=== PATIENT | male | born 1950 | race Hispanic/Latino ===

== ENCOUNTER 2019-01-26 15:37 | Inpatient (IN) | payer OTHER ==
[~2019-01-26] VITALS: Ht 160 cm; Wt 59.0 kg
[2019-01-26] MEDS: SODIUM CHLORIDE 0.9% 1000ML 1,000 ML IV SCH (03:00)
[2019-01-26 17:11] LABS: BASOPHILS % (AUTO) 0.5 % (0.0-5.0); EOSINOPHILS % (AUTO) 1.2 % (0.0-8.0); HEMATOCRIT 39.4 % (42-54); LYMPHOCYTES % (AUTO) 20.1 % (21.0-51.0); MEAN CORPUSCULAR HEMOGLOBIN 30.8 pg (27.0-33.0); MEAN CORPUSCULAR HGB CONC 34.3 g/dL (32.0-36.0); MEAN CORPUSCULAR VOLUME 89.9 fL (79-99); NEUTROPHILS % (AUTO) 72.2 % (40.0-77.0); PLATELET COUNT (AUTO) 262 K/uL (130-400); RED BLOOD CELL COUNT(AUTO) 4.39 MIL/uL (4.50-6.20); RED CELL DISTRIBUTION WIDTH 13.6 % (11.0-15.5); WHITE BLOOD COUNT (AUTO) 10.8 K/uL (4.8-10.8)
[2019-01-26 17:17] LABS: CREATININE 1.2 mg/dL (0.5-1.5); POTASSIUM 3.7 mmol/L (3.5-5.1)
[2019-01-26 17:22] LABS: ALBUMIN 3.5 g/dL (3.5-5.0); BILIRUBIN,TOTAL 0.4 mg/dL (0.2-1.0); CRP QUANTITATIVE 3.6 mg/L (0.00-9.0); TOTAL PROTEIN, SERUM 6.9 g/dL (6.0-8.3)
[2019-01-26 18:31] LABS: ERYTHROCYTE SEDIMENTATION RATE 26 MM/HR (0-20)
[2019-01-26] MEDS ORDERED: BISACODYL 10 MG SUPP.RECT RC PRN (19:30)
[2019-01-26] MEDS ORDERED: ONDANSETRON HCL 4 MG/2 ML VIAL IV PRN (19:30)
[2019-01-26] MEDS ORDERED: SODIUM CHLORIDE 0.9% 1000ML 1,000 ML IV ONE ×2 (20:50→21:29)
[2019-01-26] MEDS ORDERED: INSULIN HUMULIN R 100 UNIT/ML 3ML SQ SCH (21:00)
[2019-01-26] MEDS: FAMOTIDINE/PF 20 MG/2 ML VIAL IV SCH (21:00)
[2019-01-26] MEDS ORDERED: ONDANSETRON HCL 4 MG/2 ML VIAL ONE (21:28)
[2019-01-26] MEDS ORDERED: FAMOTIDINE/PF 20 MG/2 ML VIAL IV ONE (21:29)
[2019-01-26] MEDS ORDERED: MORPHINE SULFATE 2 MG/ML 1ML SYG ONE (21:37)
[2019-01-27] VITALS (31 sets, daily range): BP systolic 109–193; BP diastolic 53–113
[2019-01-27] MEDS ORDERED: MORPHINE SULFATE 2 MG/ML 1ML SYG ONE (02:33)
[2019-01-27] MEDS: SODIUM CHLORIDE 0.9% 1000ML 1,000 ML IV SCH ×3 (05:26→15:19)
[2019-01-27] MEDS: INSULIN HUMULIN R 100 UNIT/ML 3ML SQ SCH ×2 (06:00→12:00)
[2019-01-27] MEDS: HYDRALAZINE HCL 20 MG/ML VIAL IV PRN ×2 (08:09→14:42)
[2019-01-27] MEDS: FAMOTIDINE/PF 20 MG/2 ML VIAL IV SCH ×2 (09:31→20:55)
[2019-01-27] MEDS ORDERED: ASPI-555 PO (09:45)
[2019-01-27] MEDS ORDERED: METO25TA6 PO (09:45)
[2019-01-27] MEDS ORDERED: ATOR40TA69 PO (09:45)
[2019-01-27] MEDS ORDERED: CHOL100034 PO (09:45)
[2019-01-27] MEDS ORDERED: SODI650T PO (09:45)
[2019-01-27] MEDS ORDERED: ASCO500T8 PO (09:45)
[2019-01-27] MEDS ORDERED: FURO40TA5 PO (09:45)
[2019-01-27 11:43] LABS: INR 0.99 (0.85-1.15); PROTHROMBIN TIME 10.4 SEC (9.6-11.6)
[2019-01-27] MEDS ORDERED: DEXAMETHASONE SOD PHOSPHATE 10MG/ML 1ML VIAL ONE (12:42)
[2019-01-27] MEDS ORDERED: ONDANSETRON HCL 4 MG/2 ML VIAL ONE (12:42)
[2019-01-27] MEDS ORDERED: MIDAZOLAM HCL 1 MG/ML 2ML VIAL ONE (12:42)
[2019-01-27] MEDS ORDERED: LIDOCAINE PF 2% 5ML ABBOJECT ONE (12:42)
[2019-01-27] MEDS ORDERED: PROPOFOL 10 MG/ML 20ML VIAL IV ONE (12:43)
[2019-01-27] MEDS ORDERED: FENTANYL CITRATE PF 50 MCG/1 ML 2ML VIAL ONE (12:43)
[2019-01-27] MEDS ORDERED: LIDOCAINE HCL 1% 20 ML VIAL ONE (12:56)
[2019-01-27] MEDS ORDERED: LABETALOL 20 MG/4 ML DISP.SYRIN IV ONE (13:58)
[2019-01-27] MEDS ORDERED: METF-444 PO (15:27)
[2019-01-27] MEDS ORDERED: BUPR100T13 PO (15:27)
[2019-01-27] MEDS ORDERED: ZOLP5TAB8 PO (15:27)
[2019-01-27] MEDS ORDERED: OMEP20CA10 PO (15:27)
[2019-01-27] MEDS ORDERED: ONDA8TAB11 PO (15:27)
[2019-01-27] MEDS ORDERED: ATOR40TA71 PO (15:27)
[2019-01-27] MEDS ORDERED: TAMS-1 PO (15:27)
[2019-01-27] MEDS ORDERED: TICA90TA PO (15:27)
[2019-01-27] MEDS ORDERED: PRED5DRO25 OP (15:27)
[2019-01-27] MEDS ORDERED: ASPI-1197 PO (15:27)
[2019-01-27] MEDS ORDERED: MULT-1258 PO (15:27)
[2019-01-27] MEDS ORDERED: AMLO10TA7 PO (15:27)
[2019-01-27] MEDS: MORPHINE SULFATE 2 MG/ML 1ML SYG IV PRN (16:23)
[2019-01-27] MEDS ORDERED: LORAZEPAM 2 MG/ML 1 ML VIAL IVP SCH (17:30)
--- NOTE | 2019-01-27 20:45 | NUR ---
MEDS PT RE-POSITIONED COMFORTABLY IN BED. DUE MEDS ADMINISTERED, TOLERATED WELL. MAINTAINED ON IVF. KEPT NPO MD ORDERED. PT'S SPOUSE AT BEDSIDE IN ATTENDANCE TO NEEDS AT THIS TIME.
[2019-01-28] MEDS: SODIUM CHLORIDE 0.9% 1000ML 1,000 ML IV SCH ×3 (01:19→11:29)
--- NOTE | 2019-01-28 02:00 | NUR ---
ROUNDS PT RESTING WELL. NO DISTRESS NOTED. NO COMPLAINTS VERBALIZED. KEPT COMFORTABLE. WILL MONITOR PT.
[2019-01-28] MEDS: MORPHINE SULFATE 2 MG/ML 1ML SYG IV PRN ×2 (03:22→10:20)
--- NOTE | 2019-01-28 03:22 | NUR ---
PAIN PT IS RESTLESS IN BED. V/S MONITORED BY PCP AND HR AND BP ARE ELEVATED. MORPHINE 2MG IV GIVEN FOR PAINS. WILL RE-ASSESS PT.
--- NOTE | 2019-01-28 04:33 | NUR ---
BP RE-CHECKED BP AND IS STILL ELEVATED. PCP IN AND GAVE PT A BED BATH, TOLERATED ACTIVITY WELL. RE-POSITIONED COMFORTABLY IN BED. MEDICATED WITH HYDRALAZINE IV FOR HYPERTENSION. WILL RE-ASSESS PT.
[2019-01-28] MEDS: HYDRALAZINE HCL 20 MG/ML VIAL IV PRN ×3 (04:48→16:09)
[2019-01-28 05:03] VITALS: BP 175/89
[2019-01-28] MEDS: INSULIN HUMULIN R 100 UNIT/ML 3ML SQ SCH ×4 (05:46→18:00)
[2019-01-28 06:31] LABS: BASOPHILS % (AUTO) 0.5 % (0.0-5.0); EOSINOPHILS % (AUTO) 0.7 % (0.0-8.0); LYMPHOCYTES % (AUTO) 8.3 % (21.0-51.0); MEAN CORPUSCULAR HEMOGLOBIN 31.4 pg (27.0-33.0); MEAN CORPUSCULAR VOLUME 89.6 fL (79-99); MONOCYTES % (AUTO) 5.7 % (3.0-13.0); NEUTROPHILS % (AUTO) 84.8 % (40.0-77.0); PLATELET COUNT (AUTO) 240 K/uL (130-400); RED BLOOD CELL COUNT(AUTO) 4.12 MIL/uL (4.50-6.20); RED CELL DISTRIBUTION WIDTH 13.5 % (11.0-15.5); WHITE BLOOD COUNT (AUTO) 14.3 K/uL (4.8-10.8)
[2019-01-28 06:39] LABS: POTASSIUM 3.6 mmol/L (3.5-5.1)
[2019-01-28 08:00] VITALS: BP 160/70
[2019-01-28] MEDS: FAMOTIDINE/PF 20 MG/2 ML VIAL IV SCH (10:19)
[2019-01-28 12:00] VITALS: BP 108/64
[2019-01-28] MEDS ORDERED: LORAZEPAM 2 MG/ML 1 ML VIAL IVP PRN (14:45)
[2019-01-28] MEDS ORDERED: CLINDAMYCIN 600 MG/D5% WATER 50 ML IV SCH (14:45)
--- NOTE | 2019-01-28 15:03 | NUR ---
Placement Decline per Spouse. Spouse declining placement for pt. Pt cleared to be d/c from Dr. Barney's standpoint S/P day one of Excision of anal polyps. called [employer] on her cell phone #[phone] to clarify if she will be okay to care for pt at home. Pending response from spouse, Nursing will continue to follow up.
[2019-01-28 16:00] VITALS: BP 185/72
--- NOTE | 2019-01-28 16:14 | NUR ---
BP Update SPB of 185/72 at this time. Hydralazine 20mg PRN for SPB over 160 given. Nursing will continue to monitor and re-check BP.
--- NOTE | 2019-01-28 17:24 | NUR ---
INITIAL: Met w pt and spouse to discuss dcp. Pt w dementia and not reliable. Information obtained from spouse. Prior to admission pt was living w spouse. Pt is wc bound and transfers w assist. Per spouse pt is dependent w ADLs. Pt has at home a chair, hospital bed and receives 8hr/week provider services thru [place]. Spouse mentions that she wants to take pt home and not willing to consider SNF at this time. Will continue to follow and wait for Md recommendations. Addendum: 01/28/19 at 1726 by HAKAN AMADO CM Amended: Links added.
--- NOTE | 2019-01-28 19:03 | NUR ---
BP re-check 155/64, Education provided to monitor BP frequently, Follow BP regimen, Education on constipation also provided, Pt to get hydrated more often, eat more fruits and vegetables, Pt and spouse verbalized understanding of d/c instruction. All question and concerns answered.
== END 2019-01-28 18:40 | disposition home or self-care (01) | DRG 349 ==
LOC: EDH 15:37 → EDHIP 19:19 → 3DH 01-27 02:50
PROVIDERS: ADMIT Internal Medicine; ATTEND Internal Medicine
PROC: 0DBQ7ZZ Excision of Anus, Via Natural or Artificial Opening (ICD-10-PCS; principal; 2019-01-27 12:35)
DX: K62.0 Anal polyp (principal); K59.00 Constipation, unspecified; I10 Essential (primary) hypertension; E78.5 Hyperlipidemia, unspecified; E11.319 Type 2 diabetes mellitus with unspecified diabetic retinopathy without macular edema; H54.7 Unspecified visual loss; K64.4 Residual hemorrhoidal skin tags; Z94.7 Corneal transplant status; Z95.1 Presence of aortocoronary bypass graft
CPT/HCPCS: 36415; 80048; 80053; 82270; 82948; 83605; 85025; 85610; 85651; 85730; 86140; 86850; 86900; 86901; 87040; C1769; G0378; J0360; J1100; J2001; J2060; J2250; J2405; J2704; J3010; J3490; J7030

== ENCOUNTER 2020-12-04 17:18 | Inpatient (IN) | payer MEDICARE, OTHER ==
[~2020-12-04] VITALS: Ht 157.5 cm; Wt 56.7 kg
[~2020-12-04 17:18] MED LIST: AMLO-258 PO; ASPI-1197 PO; ATOR40TA71 PO; BUPR100T13 PO; METF-444 PO; MULT-1258 PO; OMEP20CA12 PO; ONDA-105 PO; PRED5DRO25 OP; TAMS-1 PO; TICA90TA PO; ZOLP5TAB8 PO
[2020-12-04 18:05] LABS: BASOPHILS % (AUTO) 0.2 % (0.0-5.0); EOSINOPHILS % (AUTO) 0.3 % (0.0-8.0); HEMATOCRIT 38.7 % (42-54); MEAN CORPUSCULAR HEMOGLOBIN 31.2 pg (27.0-33.0); MEAN CORPUSCULAR HGB CONC 35.7 g/dL (32.0-36.0); MEAN CORPUSCULAR VOLUME 87.6 fL (79-99); MONOCYTES % (AUTO) 4.7 % (3.0-13.0); NEUTROPHILS % (AUTO) 84.5 % (40.0-77.0); PLATELET COUNT (AUTO) 214 K/uL (130-400); RED BLOOD CELL COUNT(AUTO) 4.42 MIL/uL (4.50-6.20); RED CELL DISTRIBUTION WIDTH 11.5 % (11.0-15.5)
[2020-12-04 18:21] LABS: INR 1.01 (0.85-1.15)
[2020-12-04 18:22] LABS: PARTIAL THROMBOPLASTIN TIME 22.1 SEC (26.3-35.5)
[2020-12-04 18:31] LABS: B-TYPE NATRIURETIC PEPTIDE 309 pg/mL (0-100)
[2020-12-04 18:41] LABS: CREATININE 1.7 mg/dL (0.5-1.5); POTASSIUM 3.5 mmol/L (3.5-5.1)
[2020-12-04 18:43] LABS: ALBUMIN 3.5 g/dL (3.5-5.0); BILIRUBIN,TOTAL 0.6 mg/dL (0.2-1.0); TOTAL PROTEIN, SERUM 6.7 g/dL (6.0-8.3)
[2020-12-04] MEDS ORDERED: ACETAMINOPHEN 325 MG TAB PO PRN ×2 (21:00)
[2020-12-04] MEDS: INSULIN GLARGINE 100 UNITS/ML 10 ML VIAL SQ SCH (21:00)
[2020-12-04] MEDS: 0.9%NACL 1000ML 1,000 ML IV SCH (21:00)
[2020-12-04] MEDS: METOPROLOL TARTRATE 25 MG TAB PO SCH (21:00)
[2020-12-04] MEDS ORDERED: MORPHINE 2 MG SYG IV PRN (21:00)
[2020-12-04] MEDS ORDERED: LABETALOL 20MG SYG IV PRN (21:00)
[2020-12-04] MEDS: TICAGRELOR 90 MG TABLET PO SCH (21:00)
[2020-12-04] MEDS: LISINOPRIL 10 MG TABLET PO SCH (21:00)
[2020-12-04] MEDS ORDERED: ONDANSETRON 4MG INJ IV PRN (21:00)
[2020-12-04] MEDS: NITROGLYCERIN 1GM OINT 1 INCH/1GM TD SCH (21:00)
[2020-12-04] MEDS: FAMOTIDINE 20MG VIAL IV SCH (21:00)
[2020-12-04] MEDS: LACTATED RINGERS 1000ML 1,000 ML IV SCH (21:15)
[2020-12-04 21:41] LABS: HEMOGLOBIN A1C 6.5 % (4.0-6.0)
[2020-12-04] MEDS ORDERED: ZOLPIDEM TARTRATE 5 MG TAB PO PRN (21:45)
[2020-12-04 22:17] LABS: CREATINE KINASE, TOTAL 48 U/L (21-232); MYOGLOBIN 67 ng/mL (10-92); TROPONIN I < 0.04 ng/mL (0.00-0.06)
[2020-12-04 23:05] LABS: MAGNESIUM 1.7 mg/dL (1.80-2.40); PHOSPHORUS 3.2 mg/dL (2.5-4.9)
[2020-12-04 23:54] LABS: APPEARANCE,URINE Clear (CLEAR); BILIRUBIN,URINE Negative (NEGATIVE); COLOR,URINE Yellow (YELLOW); GLUCOSE, URINE (UA) >=1000 mg/dL (NEGATIVE); KETONES,URINE Trace mg/dL (NEGATIVE); LEUKOCYTE ESTERASE ,URINE Negative (NEGATIVE); NITRATE,URINE Negative (NEGATIVE); OCCULT BLOOD,URINE Trace (NEGATIVE); PH,URINE 5.5 (5.0-8.0); PROTEIN,URINE >=1000 mg/dL (NEGATIVE)
[2020-12-05] VITALS (35 sets, daily range): BP systolic 136–199; BP diastolic 65–104
[2020-12-05] MEDS ORDERED: NITROGLYCERIN 1GM OINT 1 INCH/1GM TD ONE (00:05)
[2020-12-05] MEDS ORDERED: ONDANSETRON 4MG INJ ONE (00:05)
[2020-12-05 00:06] LABS: BACTERIA,URINE Rare /HPF (None Seen); SQUAMOUS EPITHELIAL CELL,UR 0-2 /HPF (0-2)
[2020-12-05] MEDS ORDERED: LACTATED RINGERS 1000ML 1,000 ML IV ONE (02:52)
[2020-12-05] MEDS: ZOSYN 3.375GM+NS 50ML 50 ML IV SCH ×3 (03:54→21:37)
[2020-12-05] MEDS ORDERED: MAGNESIUM 2GM PREMIX 50ML 50 ML IV PRN (04:30)
[2020-12-05] MEDS ORDERED: POTASSIUM CHLORIDE 20MEQ/100ML 100 ML IV PRN (04:30)
[2020-12-05] MEDS ORDERED: LIDOCAINE HCL-MPF 1% 2ML VIAL IV PRN (04:30)
[2020-12-05] MEDS ORDERED: NICARDIPINE 25MG INJ 25 MG in 0.9% NACL 250ML 240 ML IV SCH (04:30)
[2020-12-05] MEDS ORDERED: LABETALOL 20MG SYG IV PRN (04:30)
[2020-12-05] MEDS ORDERED: NICARDIPINE 25MG INJ IV ONE (04:50)
[2020-12-05] MEDS ORDERED: 0.9% NACL 250ML 250 ML IV ONE (04:51)
[2020-12-05] MEDS: NITROGLYCERIN 1GM OINT 1 INCH/1GM TD SCH ×3 (06:22→21:38)
[2020-12-05 06:24] LABS: CREATINE KINASE, TOTAL 33 U/L (21-232); TROPONIN I < 0.04 ng/mL (0.00-0.06)
[2020-12-05 06:49] LABS: MYOGLOBIN 57 ng/mL (10-92)
[2020-12-05] MEDS: 0.9%NACL 1000ML 1,000 ML IV SCH (07:00)
[2020-12-05] MEDS: LACTATED RINGERS 1000ML 1,000 ML IV SCH ×2 (07:15→07:32)
[2020-12-05] MEDS: ASPIRIN 81MG CHEW TAB PO SCH (09:22)
[2020-12-05] MEDS: METOPROLOL TARTRATE 25 MG TAB PO SCH ×2 (09:22→21:37)
[2020-12-05] MEDS: TICAGRELOR 90 MG TABLET PO SCH ×2 (09:22→21:37)
[2020-12-05] MEDS: LISINOPRIL 10 MG TABLET PO SCH (09:22)
[2020-12-05] MEDS: ENOXAPARIN SODIUM 40 MG/0.4 ML SYRINGE SQ SCH (09:22)
[2020-12-05] MEDS: SERTRALINE HCL 50 MG TABLET PO SCH (09:22)
[2020-12-05 12:55] LABS: CREATINE KINASE, TOTAL 39 U/L (21-232); MYOGLOBIN 82 ng/mL (10-92); TROPONIN I < 0.04 ng/mL (0.00-0.06)
[2020-12-05 14:17] LABS: AMPHET/METH SCREEN,URINE NEGATIVE (NEGATIVE); BARBITURATE SCREEN, URINE NEGATIVE (NEGATIVE); BENZODIAZEPINES SCREEN,URINE NEGATIVE (NEGATIVE); CANNABINOID SCREEN,URINE NEGATIVE (NEGATIVE); COCAINE SCREEN,URINE NEGATIVE (NEGATIVE); OPIATE SCREEN,URINE NEGATIVE (NEGATIVE); PHENCYCLIDINE SCREEN,URINE NEGATIVE (NEGATIVE)
[2020-12-05] MEDS ORDERED: DIATR MEGLU/DIATRIZOATE SODIUM 30 ML BOTTLE ONE (15:03)
[2020-12-05 15:33] LABS: CREATININE 1.5 mg/dL (0.5-1.5); POTASSIUM 3.6 mmol/L (3.5-5.1)
[2020-12-05] MEDS ORDERED: IOHEXOL-350 75 ML VIAL IV ONE (16:52)
[2020-12-05] MEDS ORDERED: NICARDIPINE 25MG INJ 50 MG in 0.9% NACL 250ML 230 ML IV SCH (21:00)
[2020-12-05] MEDS: INSULIN GLARGINE 100 UNITS/ML 10 ML VIAL SQ SCH (21:00)
[2020-12-05] MEDS: FAMOTIDINE 20MG VIAL IV SCH (21:37)
[2020-12-05] MEDS: ATORVASTATIN 40 MG TABLET PO SCH (21:37)
[2020-12-06] VITALS (81 sets, daily range): BP systolic 110–194; BP diastolic 52–104
[2020-12-06] MEDS: ZOSYN 3.375GM+NS 50ML 50 ML IV SCH ×3 (05:22→22:22)
[2020-12-06] MEDS: NITROGLYCERIN 1GM OINT 1 INCH/1GM TD SCH ×2 (05:23→12:03)
[2020-12-06 06:40] LABS: BASOPHILS % (AUTO) 0.2 % (0.0-5.0); EOSINOPHILS % (AUTO) 0.2 % (0.0-8.0); HEMATOCRIT 37.5 % (42-54); LYMPHOCYTES % (AUTO) 6.1 % (21.0-51.0); MEAN CORPUSCULAR HEMOGLOBIN 31.9 pg (27.0-33.0); MEAN CORPUSCULAR HGB CONC 35.7 g/dL (32.0-36.0); MEAN CORPUSCULAR VOLUME 89.3 fL (79-99); MONOCYTES % (AUTO) 7.1 % (3.0-13.0); PLATELET COUNT (AUTO) 255 K/uL (130-400); RED CELL DISTRIBUTION WIDTH 11.8 % (11.0-15.5); WHITE BLOOD COUNT (AUTO) 17.3 K/uL (4.8-10.8)
[2020-12-06 06:48] LABS: CREATININE 1.5 mg/dL (0.5-1.5); POTASSIUM 3.5 mmol/L (3.5-5.1)
[2020-12-06] MEDS: ASPIRIN 81MG CHEW TAB PO SCH (09:58)
[2020-12-06] MEDS: SERTRALINE HCL 50 MG TABLET PO SCH (09:58)
[2020-12-06] MEDS: LISINOPRIL 10 MG TABLET PO SCH (09:58)
[2020-12-06] MEDS: METOPROLOL TARTRATE 25 MG TAB PO SCH ×2 (09:58→22:22)
[2020-12-06] MEDS: TICAGRELOR 90 MG TABLET PO SCH ×2 (09:59→22:22)
[2020-12-06] MEDS: ENOXAPARIN SODIUM 40 MG/0.4 ML SYRINGE SQ SCH (09:59)
[2020-12-06] MEDS ORDERED: LISINOPRIL 10 MG TABLET PO SCH ×2 (11:21→11:45)
[2020-12-06] MEDS ORDERED: LACTULOSE 20 GM/30 ML UDCUP PO PRN (15:45)
[2020-12-06] MEDS: ATORVASTATIN 40 MG TABLET PO SCH (22:22)
[2020-12-06] MEDS: FAMOTIDINE 20MG VIAL IV SCH (22:23)
[2020-12-06] MEDS: INSULIN GLARGINE 100 UNITS/ML 10 ML VIAL SQ SCH (22:26)
[2020-12-07] VITALS (41 sets, daily range): BP systolic 128–217; BP diastolic 51–104
[2020-12-07] MEDS: ZOSYN 3.375GM+NS 50ML 50 ML IV SCH ×3 (04:11→20:59)
[2020-12-07 06:43] LABS: BASOPHILS % (AUTO) 0.3 % (0.0-5.0); EOSINOPHILS % (AUTO) 0.9 % (0.0-8.0); MEAN CORPUSCULAR HEMOGLOBIN 31.3 pg (27.0-33.0); MEAN CORPUSCULAR HGB CONC 34.9 g/dL (32.0-36.0); MEAN CORPUSCULAR VOLUME 89.7 fL (79-99); MONOCYTES % (AUTO) 7.2 % (3.0-13.0); NEUTROPHILS % (AUTO) 80.2 % (40.0-77.0); PLATELET COUNT (AUTO) 211 K/uL (130-400); RED CELL DISTRIBUTION WIDTH 11.7 % (11.0-15.5)
[2020-12-07 07:15] LABS: CREATININE 1.4 mg/dL (0.5-1.5); MAGNESIUM 1.9 mg/dL (1.80-2.40)
[2020-12-07] MEDS: ASPIRIN 81MG CHEW TAB PO SCH (07:48)
[2020-12-07] MEDS: METOPROLOL TARTRATE 25 MG TAB PO SCH ×2 (07:49→20:59)
[2020-12-07] MEDS: TICAGRELOR 90 MG TABLET PO SCH ×2 (07:49→21:00)
[2020-12-07] MEDS: SERTRALINE HCL 50 MG TABLET PO SCH (07:49)
[2020-12-07] MEDS: ENOXAPARIN SODIUM 40 MG/0.4 ML SYRINGE SQ SCH (07:50)
[2020-12-07 08:19] LABS: POTASSIUM 2.9 mmol/L (3.5-5.1)
[2020-12-07] MEDS ORDERED: POTASSIUM CHLORIDE 10% ELIXIR 20 MEQ/15 ML UDCUP ONE (08:22)
[2020-12-07] MEDS ORDERED: POTASSIUM CHLORIDE 20MEQ/100ML 100 ML IV PRN (08:45)
[2020-12-07] MEDS ORDERED: KCL 20 MEQ ERTAB PO PRN (08:45)
[2020-12-07] MEDS ORDERED: LISINOPRIL 10 MG TABLET PO SCH (09:00)
[2020-12-07] MEDS: HYDRALAZINE 25MG TABLET PO SCH ×2 (10:00→20:59)
[2020-12-07] MEDS: POTASSIUM CHLORIDE 10% ELIXIR 20 MEQ/15 ML UDCUP PO PRN ×2 (11:44→14:33)
[2020-12-07 12:07] LABS: CREATININE 1.5 mg/dL (0.5-1.5); POTASSIUM 3.7 mmol/L (3.5-5.1)
[2020-12-07] MEDS: FAMOTIDINE 20MG VIAL IV SCH (20:59)
[2020-12-07] MEDS: ATORVASTATIN 40 MG TABLET PO SCH (21:00)
[2020-12-07] MEDS: INSULIN GLARGINE 100 UNITS/ML 10 ML VIAL SQ SCH (21:03)
[2020-12-08] VITALS (16 sets, daily range): BP systolic 133–186; BP diastolic 50–77
[2020-12-08] MEDS: ZOSYN 3.375GM+NS 50ML 50 ML IV SCH ×3 (04:23→21:52)
[2020-12-08 05:50] LABS: BASOPHILS % (AUTO) 0.3 % (0.0-5.0); EOSINOPHILS % (AUTO) 0.7 % (0.0-8.0); HEMATOCRIT 34.5 % (42-54); LYMPHOCYTES % (AUTO) 15.1 % (21.0-51.0); MEAN CORPUSCULAR HEMOGLOBIN 31.6 pg (27.0-33.0); MEAN CORPUSCULAR HGB CONC 35.9 g/dL (32.0-36.0); MEAN CORPUSCULAR VOLUME 87.8 fL (79-99); MONOCYTES % (AUTO) 8.7 % (3.0-13.0); NEUTROPHILS % (AUTO) 74.8 % (40.0-77.0); PLATELET COUNT (AUTO) 209 K/uL (130-400); RED BLOOD CELL COUNT(AUTO) 3.93 MIL/uL (4.50-6.20); RED CELL DISTRIBUTION WIDTH 11.4 % (11.0-15.5); WHITE BLOOD COUNT (AUTO) 7.5 K/uL (4.8-10.8)
[2020-12-08 05:59] LABS: CREATININE 1.2 mg/dL (0.5-1.5); MAGNESIUM 1.8 mg/dL (1.80-2.40); POTASSIUM 3.4 mmol/L (3.5-5.1)
[2020-12-08] MEDS: TICAGRELOR 90 MG TABLET PO SCH ×2 (08:32→21:51)
[2020-12-08] MEDS: ASPIRIN 81MG CHEW TAB PO SCH (08:32)
[2020-12-08] MEDS: METOPROLOL TARTRATE 25 MG TAB PO SCH ×2 (08:32→21:52)
[2020-12-08] MEDS: SERTRALINE HCL 50 MG TABLET PO SCH (08:32)
[2020-12-08] MEDS: ENOXAPARIN SODIUM 40 MG/0.4 ML SYRINGE SQ SCH (08:33)
[2020-12-08] MEDS: HYDRALAZINE 25MG TABLET PO SCH ×2 (08:33→21:51)
[2020-12-08] MEDS: LISINOPRIL 10 MG TABLET PO SCH (10:58)
[2020-12-08] MEDS: ATORVASTATIN 40 MG TABLET PO SCH (21:51)
[2020-12-08] MEDS: FAMOTIDINE 20MG VIAL IV SCH (21:52)
[2020-12-08] MEDS: INSULIN GLARGINE 100 UNITS/ML 10 ML VIAL SQ SCH (22:01)
[2020-12-09 04:23] VITALS: BP 162/71
[2020-12-09] MEDS: ZOSYN 3.375GM+NS 50ML 50 ML IV SCH ×3 (05:01→23:14)
[2020-12-09 05:50] LABS: BASOPHILS % (AUTO) 0.4 % (0.0-5.0); EOSINOPHILS % (AUTO) 1.9 % (0.0-8.0); HEMATOCRIT 36.8 % (42-54); LYMPHOCYTES % (AUTO) 16.7 % (21.0-51.0); MEAN CORPUSCULAR HEMOGLOBIN 31.2 pg (27.0-33.0); MEAN CORPUSCULAR HGB CONC 35.1 g/dL (32.0-36.0); MEAN CORPUSCULAR VOLUME 88.9 fL (79-99); MONOCYTES % (AUTO) 8.4 % (3.0-13.0); NEUTROPHILS % (AUTO) 72.1 % (40.0-77.0); PLATELET COUNT (AUTO) 220 K/uL (130-400); RED BLOOD CELL COUNT(AUTO) 4.14 MIL/uL (4.50-6.20); RED CELL DISTRIBUTION WIDTH 11.7 % (11.0-15.5); WHITE BLOOD COUNT (AUTO) 7.5 K/uL (4.8-10.8)
[2020-12-09 06:02] LABS: CREATININE 1.3 mg/dL (0.5-1.5); MAGNESIUM 1.9 mg/dL (1.80-2.40); POTASSIUM 3.6 mmol/L (3.5-5.1)
[2020-12-09 08:00] VITALS: BP 196/76
[2020-12-09] MEDS: TICAGRELOR 90 MG TABLET PO SCH ×2 (09:41→23:14)
[2020-12-09] MEDS: METOPROLOL TARTRATE 25 MG TAB PO SCH ×2 (09:41→23:14)
[2020-12-09] MEDS: LISINOPRIL 10 MG TABLET PO SCH (09:41)
[2020-12-09] MEDS: HYDRALAZINE 25MG TABLET PO SCH ×2 (09:42→23:15)
[2020-12-09] MEDS: SERTRALINE HCL 50 MG TABLET PO SCH (09:42)
[2020-12-09] MEDS: ENOXAPARIN SODIUM 40 MG/0.4 ML SYRINGE SQ SCH (09:43)
[2020-12-09] MEDS: ASPIRIN 81MG CHEW TAB PO SCH (09:44)
[2020-12-09 12:00] VITALS: BP 135/58
[2020-12-09 16:00] VITALS: BP 179/83
[2020-12-09 20:39] VITALS: BP 150/80
[2020-12-09] MEDS: FAMOTIDINE 20MG VIAL IV SCH (21:00)
[2020-12-09] MEDS: ATORVASTATIN 40 MG TABLET PO SCH (23:14)
[2020-12-09] MEDS: INSULIN GLARGINE 100 UNITS/ML 10 ML VIAL SQ SCH (23:16)
[2020-12-09 23:46] VITALS: BP 140/73
[2021-01-10] MEDS ORDERED: LISI5TAB21 PO (02:11)
[2021-01-10] MEDS ORDERED: ALOG12.52 PO (02:11)
[2021-01-10] MEDS ORDERED: METO25TA6 PO (02:11)
[2021-01-10] MEDS ORDERED: HYDR-4153 PO (02:13)
[2021-01-10] MEDS ORDERED: SERT-439 PO (02:13)
== END 2020-12-10 01:40 | DRG 682 ==
LOC: EDH 17:18 → EDHIP 20:50 → 4BH 12-05 02:44 → 2DH 12-05 04:44 → 4DH 12-08 17:30
PROVIDERS: ADMIT Internal Medicine; ATTEND Internal Medicine
DX: N17.9 Acute kidney failure, unspecified (principal); A41.50 Gram-negative sepsis, unspecified; N39.0 Urinary tract infection, site not specified; I69.354 Hemiplegia and hemiparesis following cerebral infarction affecting left non-dominant side; G93.40 Encephalopathy, unspecified; I16.0 Hypertensive urgency; Z66 Do not resuscitate; I10 Essential (primary) hypertension; Z74.01 Bed confinement status; D35.01 Benign neoplasm of right adrenal gland; B96.4 Proteus (mirabilis) (morganii) as the cause of diseases classified elsewhere; E78.00 Pure hypercholesterolemia, unspecified; E78.5 Hyperlipidemia, unspecified; F03.90 Unspecified dementia, unspecified severity, without behavioral disturbance, psychotic disturbance, mood disturbance, and anxiety; F32.9 Major depressive disorder, single episode, unspecified; I25.10 Atherosclerotic heart disease of native coronary artery without angina pectoris; I45.10 Unspecified right bundle-branch block; K21.9 Gastro-esophageal reflux disease without esophagitis; N40.0 Benign prostatic hyperplasia without lower urinary tract symptoms; R53.81 Other malaise; E11.51 Type 2 diabetes mellitus with diabetic peripheral angiopathy without gangrene; I25.2 Old myocardial infarction; Z79.02 Long term (current) use of antithrombotics/antiplatelets; Z79.82 Long term (current) use of aspirin; Z79.84 Long term (current) use of oral hypoglycemic drugs; Z79.899 Other long term (current) drug therapy; Z82.3 Family history of stroke; Z83.3 Family history of diabetes mellitus; Z87.891 Personal history of nicotine dependence; Z95.1 Presence of aortocoronary bypass graft
CPT/HCPCS: 36415; 71045; 74018; 74178; 74230; 76700; 80048; 80053; 80305; 81001; 82150; 82550; 82948; 83036; 83605; 83690; 83735; 83874; 83880; 84100; 84132; 84145; 84484; 85025; 85610; 85730; 87040; 87077; 87088; 87186; 92610; 92611; 93005; 93306; 97039; G0378; J1650; J2405; J2543; J3480; J3490; J7050; J7120; Q9963; Q9967

== ENCOUNTER 2021-01-16 09:32 | Inpatient (IN) | payer OTHER ==
[~2021-01-16] VITALS: Ht 160 cm; Wt 95.3 kg
[~2021-01-16 09:32] MED LIST changes: +ALOG12.52 PO; -AMLO-258 PO; -BUPR100T13 PO; +HYDR-4153 PO; +LISI-809 PO; -METF-444 PO; +METO25TA6 PO; -MULT-1258 PO; -OMEP20CA12 PO; -ONDA-105 PO; +ONDA8TAB65 PO; -PRED5DRO25 OP; +SERT-439 PO; -ZOLP5TAB8 PO
[2021-01-16] MEDS ORDERED: PANTOPRAZOLE 40 MG/VIAL ONE (10:32)
[2021-01-16] MEDS ORDERED: ONDANSETRON HCL 4 MG/2 ML VIAL ONE (10:32)
[2021-01-16 10:38] LABS: BASOPHILS % (AUTO) 0.1 % (0.0-5.0); HEMATOCRIT 43.8 % (42-54); LYMPHOCYTES % (AUTO) 3.3 % (21.0-51.0); MEAN CORPUSCULAR HEMOGLOBIN 32.3 pg (27.0-33.0); MEAN CORPUSCULAR HGB CONC 35.8 g/dL (32.0-36.0); MEAN CORPUSCULAR VOLUME 90.1 fL (79-99); MONOCYTES % (AUTO) 4.5 % (3.0-13.0); NEUTROPHILS % (AUTO) 91.6 % (40.0-77.0); PLATELET COUNT (AUTO) 318 K/uL (130-400); RED BLOOD CELL COUNT(AUTO) 4.86 MIL/uL (4.50-6.20); RED CELL DISTRIBUTION WIDTH 11.9 % (11.0-15.5); WHITE BLOOD COUNT (AUTO) 24.9 K/uL (4.8-10.8)
[2021-01-16 10:47] LABS: CREATININE 1.5 mg/dL (0.5-1.5)
[2021-01-16 10:52] LABS: ALBUMIN 3.7 g/dL (3.5-5.0); BILIRUBIN,TOTAL 0.5 mg/dL (0.2-1.0); TOTAL PROTEIN, SERUM 7.2 g/dL (6.0-8.3)
[2021-01-16 11:51] LABS: APPEARANCE,URINE Clear (CLEAR); BILIRUBIN,URINE Negative (NEGATIVE); COLOR,URINE Yellow (YELLOW); GLUCOSE, URINE (UA) >=1000 mg/dL (NEGATIVE); KETONES,URINE Trace mg/dL (NEGATIVE); LEUKOCYTE ESTERASE ,URINE Trace (NEGATIVE); NITRATE,URINE Negative (NEGATIVE); OCCULT BLOOD,URINE Negative (NEGATIVE); PROTEIN,URINE >=1000 mg/dL (NEGATIVE)
[2021-01-16 11:54] LABS: INR 1.18 (0.85-1.15); PARTIAL THROMBOPLASTIN TIME 30.1 SEC (26.3-35.5); PROTHROMBIN TIME 12.2 SEC (9.6-11.6)
[2021-01-16] MEDS ORDERED: IOHEXOL-350 75 ML VIAL IV ONE (11:56)
[2021-01-16 12:47] LABS: BACTERIA,URINE Few /HPF (None Seen); RBC,URINE None Seen /HPF (0-1); SQUAMOUS EPITHELIAL CELL,UR 0-2 /HPF (0-2); WBC,URINE 0-1 /HPF (0-1)
[2021-01-16] MEDS ORDERED: ONDANSETRON HCL 4 MG/2 ML VIAL IV PRN (17:15)
[2021-01-16] MEDS ORDERED: ACETAMINOPHEN 325 MG TAB PO PRN ×2 (17:15)
[2021-01-16] MEDS ORDERED: CEFTRIAXONE SODIUM 1 GM ONE (17:42)
[2021-01-16] MEDS ORDERED: HYDRALAZINE HCL 25 MG TABLET ONE (17:52)
[2021-01-16] MEDS: CEFTRIAXONE SODIUM 1 GM IV SCH (19:30)
[2021-01-16] MEDS ORDERED: METOPROLOL TARTRATE 25 MG TAB ONE (19:55)
[2021-01-16] MEDS ORDERED: LISINOPRIL 5 MG TABLET ONE (19:55)
[2021-01-16 20:30] VITALS: BP 160/73
[2021-01-16] MEDS: INSULIN HUMULIN R 100 UNIT/ML 3ML SQ SCH (21:00)
[2021-01-16] MEDS: SODIUM CHLORIDE 0.9% 1000ML 1,000 ML IV SCH (22:27)
[2021-01-16] MEDS: HYDRALAZINE HCL 25 MG TABLET PO SCH (22:28)
[2021-01-16] MEDS: FAMOTIDINE 20MG TAB 20 MG TAB PO SCH (22:28)
[2021-01-16] MEDS ORDERED: DEXA4TAB PO (23:21)
[2021-01-16] MEDS ORDERED: DEXA2TAB PO (23:24)
[2021-01-17] VITALS: BP_SYST 169
[2021-01-17] MEDS ORDERED: LABETALOL 20 MG/4 ML DISP.SYRIN IV PRN (00:45)
[2021-01-17 04:00] VITALS: BP 148/61
[2021-01-17 05:34] LABS: BASOPHILS % (AUTO) 0.1 % (0.0-5.0); EOSINOPHILS % (AUTO) 0.4 % (0.0-8.0); HEMATOCRIT 33.7 % (42-54); LYMPHOCYTES % (AUTO) 8.1 % (21.0-51.0); MEAN CORPUSCULAR HEMOGLOBIN 32.2 pg (27.0-33.0); MEAN CORPUSCULAR HGB CONC 34.7 g/dL (32.0-36.0); MEAN CORPUSCULAR VOLUME 92.8 fL (79-99); NEUTROPHILS % (AUTO) 83.9 % (40.0-77.0); PLATELET COUNT (AUTO) 185 K/uL (130-400); RED BLOOD CELL COUNT(AUTO) 3.63 MIL/uL (4.50-6.20); RED CELL DISTRIBUTION WIDTH 12.2 % (11.0-15.5); WHITE BLOOD COUNT (AUTO) 16.4 K/uL (4.8-10.8)
[2021-01-17] MEDS: INSULIN HUMULIN R 100 UNIT/ML 3ML SQ SCH ×4 (05:40→21:00)
[2021-01-17 05:51] LABS: CREATININE 1.3 mg/dL (0.5-1.5); POTASSIUM 3.9 mmol/L (3.5-5.1)
[2021-01-17] MEDS: SODIUM CHLORIDE 0.9% 1000ML 1,000 ML IV SCH ×2 (06:35→22:28)
[2021-01-17 08:00] VITALS: BP 118/61
[2021-01-17] MEDS: POLYETHYLENE GLYCOL 3350 17 GM POWD.PACK PO SCH (08:41)
[2021-01-17] MEDS: METOPROLOL TARTRATE 25 MG TAB PO SCH (08:42)
[2021-01-17] MEDS: SERTRALINE HCL 50 MG TABLET PO SCH (08:42)
[2021-01-17] MEDS: FAMOTIDINE 20MG TAB 20 MG TAB PO SCH ×2 (08:42→22:25)
[2021-01-17] MEDS: HYDRALAZINE HCL 25 MG TABLET PO SCH ×3 (08:42→22:26)
[2021-01-17] MEDS: LISINOPRIL 5 MG TABLET PO SCH (08:42)
[2021-01-17 12:00] VITALS: BP 164/62
[2021-01-17] MEDS ORDERED: POLYETHYLENE GLYCOL 3350 17 GM POWD.PACK PO SCH (12:15)
[2021-01-17 16:00] VITALS: BP 137/53
[2021-01-17 20:20] VITALS: BP 177/61
[2021-01-17] MEDS: LACTULOSE 20 GM/30 ML UDCUP PO PRN (22:25)
[2021-01-17] MEDS: CEFTRIAXONE SODIUM 1 GM IV SCH (22:25)
[2021-01-17] MEDS: DOCUSATE SODIUM 100 MG CAP PO SCH (22:25)
[2021-01-17] MEDS: SENNOSIDES 8.6 MG TABLET PO SCH (22:26)
[2021-01-18] VITALS (8 sets, daily range): BP systolic 127–203; BP diastolic 60–78
[2021-01-18] MEDS: INSULIN HUMULIN R 100 UNIT/ML 3ML SQ SCH ×4 (05:51→22:14)
[2021-01-18] MEDS: DOCUSATE SODIUM 100 MG CAP PO SCH ×2 (08:39→22:11)
[2021-01-18] MEDS: LISINOPRIL 5 MG TABLET PO SCH (08:39)
[2021-01-18] MEDS: HYDRALAZINE HCL 25 MG TABLET PO SCH ×3 (08:39→22:13)
[2021-01-18] MEDS: SERTRALINE HCL 50 MG TABLET PO SCH (08:39)
[2021-01-18] MEDS: SENNOSIDES 8.6 MG TABLET PO SCH ×2 (08:39→22:12)
[2021-01-18] MEDS: FAMOTIDINE 20MG TAB 20 MG TAB PO SCH ×2 (08:39→22:11)
[2021-01-18] MEDS: METOPROLOL TARTRATE 25 MG TAB PO SCH (08:40)
[2021-01-18] MEDS: POLYETHYLENE GLYCOL 3350 17 GM POWD.PACK PO SCH (08:41)
[2021-01-18] MEDS: LACTULOSE 20 GM/30 ML UDCUP PO PRN (08:45)
[2021-01-18] MEDS: ALOGLIPTIN BENZOATE 12.5 MG PO SCH (09:00)
[2021-01-18] MEDS: DEXAMETHASONE 4 MG TAB PO SCH ×4 (09:00→22:12)
[2021-01-18] MEDS ORDERED: MINERAL OIL 30 ML UDCUP PR SCH (09:15)
[2021-01-18] MEDS: SODIUM CHLORIDE 0.9% 1000ML 1,000 ML IV SCH ×2 (09:15→23:26)
[2021-01-18] MEDS: TICAGRELOR 90 MG TABLET PO SCH ×2 (11:14→22:12)
[2021-01-18] MEDS: ASPIRIN 81MG TAB.CHEW PO SCH (11:16)
[2021-01-18] MEDS: LABETALOL 20 MG/4 ML DISP.SYRIN IV PRN ×2 (11:18→16:49)
[2021-01-18] MEDS: TAMSULOSIN HCL 0.4 MG CAP.ER.24H PO SCH (22:12)
[2021-01-18] MEDS: ATORVASTATIN CALCIUM 40 MG TABLET PO SCH (22:12)
[2021-01-18] MEDS: CEFTRIAXONE SODIUM 1 GM IV SCH (22:13)
[2021-01-19 00:23] VITALS: BP 137/49
[2021-01-19 05:48] VITALS: BP 110/59
[2021-01-19] MEDS: INSULIN HUMULIN R 100 UNIT/ML 3ML SQ SCH ×4 (06:18→21:00)
[2021-01-19 08:14] VITALS: BP 150/62
[2021-01-19 09:38] LABS: BASOPHILS % (AUTO) 0.2 % (0.0-5.0); EOSINOPHILS % (AUTO) 0.6 % (0.0-8.0); HEMATOCRIT 30.4 % (42-54); LYMPHOCYTES % (AUTO) 15.2 % (21.0-51.0); MEAN CORPUSCULAR HEMOGLOBIN 32.2 pg (27.0-33.0); MEAN CORPUSCULAR HGB CONC 35.2 g/dL (32.0-36.0); MEAN CORPUSCULAR VOLUME 91.6 fL (79-99); MONOCYTES % (AUTO) 7.7 % (3.0-13.0); NEUTROPHILS % (AUTO) 76.1 % (40.0-77.0); PLATELET COUNT (AUTO) 177 K/uL (130-400); RED BLOOD CELL COUNT(AUTO) 3.32 MIL/uL (4.50-6.20); RED CELL DISTRIBUTION WIDTH 11.8 % (11.0-15.5); WHITE BLOOD COUNT (AUTO) 6.2 K/uL (4.8-10.8)
[2021-01-19 09:46] LABS: CREATININE 1.1 mg/dL (0.5-1.5); CRP QUANTITATIVE 4.5 mg/L (0.00-9.0); POTASSIUM 4.3 mmol/L (3.5-5.1)
[2021-01-19] MEDS: SENNOSIDES 8.6 MG TABLET PO SCH ×2 (10:07→21:09)
[2021-01-19] MEDS: HYDRALAZINE HCL 25 MG TABLET PO SCH ×3 (10:07→21:06)
[2021-01-19] MEDS: TICAGRELOR 90 MG TABLET PO SCH ×2 (10:07→21:06)
[2021-01-19] MEDS: ASPIRIN 81MG TAB.CHEW PO SCH (10:07)
[2021-01-19] MEDS: FAMOTIDINE 20MG TAB 20 MG TAB PO SCH ×2 (10:08→21:08)
[2021-01-19] MEDS: METOPROLOL TARTRATE 25 MG TAB PO SCH (10:08)
[2021-01-19] MEDS: SERTRALINE HCL 50 MG TABLET PO SCH (10:08)
[2021-01-19] MEDS: POLYETHYLENE GLYCOL 3350 17 GM POWD.PACK PO SCH (10:08)
[2021-01-19] MEDS: LISINOPRIL 10 MG TABLET PO SCH (10:08)
[2021-01-19] MEDS: DOCUSATE SODIUM 100 MG CAP PO SCH ×2 (10:08→21:06)
[2021-01-19] MEDS: ALOGLIPTIN BENZOATE 12.5 MG PO SCH (10:09)
[2021-01-19 11:00] VITALS: BP 183/50
[2021-01-19] MEDS: SODIUM CHLORIDE 0.9% 1000ML 1,000 ML IV SCH (11:54)
[2021-01-19 16:20] VITALS: BP 173/68
[2021-01-19 19:57] VITALS: BP 165/57
[2021-01-19] MEDS: CEFTRIAXONE SODIUM 1 GM IV SCH (20:05)
[2021-01-19] MEDS: TAMSULOSIN HCL 0.4 MG CAP.ER.24H PO SCH (21:08)
[2021-01-19] MEDS: ATORVASTATIN CALCIUM 40 MG TABLET PO SCH (21:13)
[2021-01-20] VITALS (7 sets, daily range): BP systolic 150–190; BP diastolic 56–80
[2021-01-20] MEDS: LABETALOL 20 MG/4 ML DISP.SYRIN IV PRN (03:27)
[2021-01-20] MEDS ORDERED: SODIUM CHLORIDE 0.9% 1000ML 1,000 ML IV ONE (04:49)
[2021-01-20 05:11] LABS: BASOPHILS % (AUTO) 0.2 % (0.0-5.0); EOSINOPHILS % (AUTO) 1.2 % (0.0-8.0); MEAN CORPUSCULAR HEMOGLOBIN 31.2 pg (27.0-33.0); MEAN CORPUSCULAR HGB CONC 34.7 g/dL (32.0-36.0); MEAN CORPUSCULAR VOLUME 89.9 fL (79-99); MONOCYTES % (AUTO) 7.5 % (3.0-13.0); NEUTROPHILS % (AUTO) 76.6 % (40.0-77.0); PLATELET COUNT (AUTO) 211 K/uL (130-400); RED BLOOD CELL COUNT(AUTO) 3.78 MIL/uL (4.50-6.20); RED CELL DISTRIBUTION WIDTH 11.8 % (11.0-15.5)
[2021-01-20 05:26] LABS: CREATININE 1.1 mg/dL (0.5-1.5); MAGNESIUM 1.8 mg/dL (1.80-2.40); POTASSIUM 3.6 mmol/L (3.5-5.1)
[2021-01-20] MEDS: INSULIN HUMULIN R 100 UNIT/ML 3ML SQ SCH ×4 (07:30→21:00)
[2021-01-20] MEDS: POLYETHYLENE GLYCOL 3350 17 GM POWD.PACK PO SCH (09:28)
[2021-01-20] MEDS: ASPIRIN 81MG TAB.CHEW PO SCH (09:29)
[2021-01-20] MEDS: HYDRALAZINE HCL 25 MG TABLET PO SCH ×3 (09:29→23:12)
[2021-01-20] MEDS: SERTRALINE HCL 50 MG TABLET PO SCH (09:29)
[2021-01-20] MEDS: SENNOSIDES 8.6 MG TABLET PO SCH ×2 (09:29→23:11)
[2021-01-20] MEDS: METOPROLOL TARTRATE 25 MG TAB PO SCH (09:29)
[2021-01-20] MEDS: DOCUSATE SODIUM 100 MG CAP PO SCH (09:29)
[2021-01-20] MEDS: LISINOPRIL 10 MG TABLET PO SCH (09:29)
[2021-01-20] MEDS: TICAGRELOR 90 MG TABLET PO SCH ×2 (09:29→23:14)
[2021-01-20] MEDS: ALOGLIPTIN BENZOATE 12.5 MG PO SCH (09:30)
[2021-01-20] MEDS: FAMOTIDINE 20MG TAB 20 MG TAB PO SCH ×2 (09:50→23:11)
[2021-01-20] MEDS: AMLODIPINE BESYLATE 5 MG TAB PO SCH ×2 (11:41→11:42)
[2021-01-20] MEDS: DOCUSATE NA 100MG/10ML UDCUP PO SCH ×2 (11:41→23:12)
[2021-01-20] MEDS: ATORVASTATIN CALCIUM 40 MG TABLET PO SCH (23:11)
[2021-01-20] MEDS: LACTULOSE 20 GM/30 ML UDCUP PO PRN (23:12)
[2021-01-20] MEDS: CEFTRIAXONE SODIUM 1 GM IV SCH (23:14)
[2021-01-20] MEDS: TAMSULOSIN HCL 0.4 MG CAP.ER.24H PO SCH (23:15)
[2021-01-21 00:44] VITALS: BP 185/67
[2021-01-21] MEDS: LABETALOL 20 MG/4 ML DISP.SYRIN IV PRN (00:51)
[2021-01-21 01:21] VITALS: BP 152/62
[2021-01-21 04:26] VITALS: BP 144/54
[2021-01-21 06:05] LABS: BASOPHILS % (AUTO) 0.2 % (0.0-5.0); EOSINOPHILS % (AUTO) 1.5 % (0.0-8.0); HEMATOCRIT 31.6 % (42-54); LYMPHOCYTES % (AUTO) 20.6 % (21.0-51.0); MEAN CORPUSCULAR HEMOGLOBIN 32.2 pg (27.0-33.0); MEAN CORPUSCULAR HGB CONC 35.4 g/dL (32.0-36.0); MEAN CORPUSCULAR VOLUME 90.8 fL (79-99); MONOCYTES % (AUTO) 8.7 % (3.0-13.0); NEUTROPHILS % (AUTO) 68.7 % (40.0-77.0); PLATELET COUNT (AUTO) 202 K/uL (130-400); RED BLOOD CELL COUNT(AUTO) 3.48 MIL/uL (4.50-6.20); RED CELL DISTRIBUTION WIDTH 11.7 % (11.0-15.5); WHITE BLOOD COUNT (AUTO) 5.9 K/uL (4.8-10.8)
[2021-01-21] MEDS: INSULIN HUMULIN R 100 UNIT/ML 3ML SQ SCH ×2 (06:21→12:18)
[2021-01-21 06:31] LABS: CREATININE 0.9 mg/dL (0.5-1.5); MAGNESIUM 1.8 mg/dL (1.80-2.40); POTASSIUM 3.2 mmol/L (3.5-5.1)
[2021-01-21] MEDS ORDERED: POTASSIUM CHLORIDE 10% ELIXIR 20 MEQ/15 ML UDCUP PO SCH ×2 (07:45→11:45)
[2021-01-21] MEDS: ALOGLIPTIN BENZOATE 12.5 MG PO SCH (09:00)
[2021-01-21 09:53] VITALS: BP 183/66
[2021-01-21] MEDS: METOPROLOL TARTRATE 25 MG TAB PO SCH (10:27)
[2021-01-21] MEDS: POLYETHYLENE GLYCOL 3350 17 GM POWD.PACK PO SCH (10:27)
[2021-01-21] MEDS: ASPIRIN 81MG TAB.CHEW PO SCH (10:27)
[2021-01-21] MEDS: TICAGRELOR 90 MG TABLET PO SCH (10:28)
[2021-01-21] MEDS: LISINOPRIL 10 MG TABLET PO SCH (10:28)
[2021-01-21] MEDS: SERTRALINE HCL 50 MG TABLET PO SCH (10:28)
[2021-01-21] MEDS: FAMOTIDINE 20MG TAB 20 MG TAB PO SCH (10:28)
[2021-01-21] MEDS: AMLODIPINE BESYLATE 5 MG TAB PO SCH (10:29)
[2021-01-21] MEDS: SENNOSIDES 8.6 MG TABLET PO SCH (10:29)
[2021-01-21] MEDS: DOCUSATE NA 100MG/10ML UDCUP PO SCH (10:29)
[2021-01-21] MEDS: HYDRALAZINE HCL 25 MG TABLET PO SCH ×2 (10:31→15:11)
[2021-01-21] MEDS ORDERED: AMLO5TAB4 PO (11:43)
[2021-01-21] MEDS ORDERED: DOCU-116 PO (11:43)
[2021-01-21] MEDS ORDERED: POLY17PO4 PO (11:43)
[2021-01-21] MEDS ORDERED: FLUT16H NASAL (11:43)
[2021-01-21] MEDS ORDERED: LISI10TA24 PO (11:43)
[2021-01-21] MEDS ORDERED: FAMO20TA8 PO (11:43)
[2021-01-21] MEDS ORDERED: CETI5TAB12 PO (11:43)
[2021-01-21] MEDS ORDERED: MAGNESIUM 2GM PREMIX 50ML 50 ML IV SCH (11:45)
[2021-01-21] MEDS ORDERED: MAGNESIUM 2GM PREMIX 50ML 50 ML IV ONE (11:45)
[2021-01-21] MEDS ORDERED: FLUTICASONE PROPIONATE 50MCG/SPRAY 16 GM BOTTLE EN SCH (12:00)
[2021-01-21 14:31] VITALS: BP 166/60
== END 2021-01-21 16:15 | disposition home or self-care (01) | DRG 389 ==
LOC: EDH 09:32 → OBSVTOIN 17:03 → EDHIP 17:03 → 3DH 20:09
PROVIDERS: ADMIT Internal Medicine; ATTEND Internal Medicine
DX: K56.41 Fecal impaction (principal); N17.9 Acute kidney failure, unspecified; I10 Essential (primary) hypertension; E86.0 Dehydration; D72.829 Elevated white blood cell count, unspecified; E11.9 Type 2 diabetes mellitus without complications; E78.5 Hyperlipidemia, unspecified; H54.7 Unspecified visual loss; I16.0 Hypertensive urgency; I25.10 Atherosclerotic heart disease of native coronary artery without angina pectoris; K57.30 Diverticulosis of large intestine without perforation or abscess without bleeding; F32.9 Major depressive disorder, single episode, unspecified; R54 Age-related physical debility; K21.9 Gastro-esophageal reflux disease without esophagitis; M48.02 Spinal stenosis, cervical region; N40.0 Benign prostatic hyperplasia without lower urinary tract symptoms; D35.01 Benign neoplasm of right adrenal gland; E27.8 Other specified disorders of adrenal gland; Z82.49 Family history of ischemic heart disease and other diseases of the circulatory system; Z82.3 Family history of stroke; Z83.3 Family history of diabetes mellitus; Z74.01 Bed confinement status; I25.2 Old myocardial infarction; Z86.73 Personal history of transient ischemic attack (TIA), and cerebral infarction without residual deficits; Z87.891 Personal history of nicotine dependence; Z95.1 Presence of aortocoronary bypass graft; Z99.3 Dependence on wheelchair
CPT/HCPCS: 36415; 71045; 74176; 80048; 80053; 81001; 82088; 82948; 83735; 84145; 84244; 85025; 85610; 85730; 86140; 92610; 93005; 97039; C9113; G0378; J0696; J1815; J2405; J3475; J7030; J8540; Q9967